=== PATIENT | female | born 1970 | race Hispanic/Latino ===

== ENCOUNTER 2020-03-17 18:18 | Emergency (ER) | payer SELFPAY ==
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
[2020-03-17 18:28] VITALS: BP 134/83; PULSE 75; RESP 18; TEMP 36.4; O2SAT 100
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
[2020-03-17 20:47] VITALS: BP 122/78; PULSE 68; RESP 18; O2SAT 99
== END 2020-03-17 20:50 | disposition home or self-care (01) ==
PROVIDERS: Emergency Provider Family Medicine
DX: S16.1XXA Strain of muscle, fascia and tendon at neck level, initial encounter (principal); S80.11XA Contusion of right lower leg, initial encounter; M47.812 Spondylosis without myelopathy or radiculopathy, cervical region; M47.814 Spondylosis without myelopathy or radiculopathy, thoracic region; N20.0 Calculus of kidney; V49.40XA Driver injured in collision with unspecified motor vehicles in traffic accident, initial encounter
CPT/HCPCS: 71046; 72125; 72128; 72131; 73590; 99284